=== PATIENT | male | born 1960 | race Two or more races ===

== ENCOUNTER 2016-12-22 05:00 | Inpatient (IN) | payer OTHER ==
[~2016-12-22] VITALS: Ht 162.6 cm; Wt 65.8 kg
[2016-12-22] VITALS (15 sets, daily range): BP systolic 95–175; BP diastolic 48–93
[2016-12-22] MEDS ORDERED: LISINOPRIL10 MG ORAL (06:02)
[2016-12-22] MEDS ORDERED: METFORMIN HCL1000 M1 ORAL (06:02)
[2016-12-22] MEDS ORDERED: GLIPIZIDE5 MG ORAL (06:02)
[2016-12-22] MEDS ORDERED: Thrombin 5000 units TOPIC ONE (06:25)
[2016-12-22] MEDS ORDERED: Vancomycin 1gm inj IVPB ONE (06:26)
[2016-12-22] MEDS ORDERED: Bupivacaine w/Epi 0.75% 30ml Vial INJ ONE (06:26)
[2016-12-22] MEDS ORDERED: Gelfoam Absorbable 1gm powder pkt TOPIC ONE (06:27)
[2016-12-22] MEDS ORDERED: Bacitracin 50000 Units Vial ONE (06:27)
[2016-12-22] MEDS ORDERED: Thrombin 5000 units spray kit TOPIC ONE (06:27)
[2016-12-22] MEDS ORDERED: LR 1000ml ONE (07:00)
[2016-12-22] MEDS ORDERED: Glycopyrrolate 0.2mg/ml 1ml Vial ONE (07:00)
[2016-12-22] MEDS ORDERED: Neostigmine 1mg/ml 10ml Inj ONE (07:00)
[2016-12-22] MEDS ORDERED: Zemuron 50mg/5ml Inj IV ONE (07:00)
[2016-12-22] MEDS ORDERED: NS Irrig 1000ml ONE (07:00)
[2016-12-22] MEDS ORDERED: Propofol 200mg/20ml IV ONE (07:00)
[2016-12-22] MEDS ORDERED: fentaNYL 100 mcg/2 mL IV ONE (07:00)
[2016-12-22] MEDS ORDERED: Midazolam 2mg/2ml Inj ONE (07:00)
[2016-12-22] MEDS ORDERED: Sodium Chloride 10ml vial INJ ONE (07:00)
[2016-12-22] MEDS ORDERED: Sterile Water Irrig 1000ml IRRIG ONE (07:00)
--- NOTE | 2016-12-22 07:11 | Pre-Procedure Note/Attestation ---
Pre-Procedure Note/Attestation Complete Prior to Procedure Planned Procedure: not applicable Procedure Narrative: For L5/S1 ALIF Indications for Procedure Pre-Operative Diagnosis: Instability, disc herniation L5/S1 for Anterior Decompression and instrumentation. Attestation I attest that I discussed the nature of the procedure; its benefits; risks and complications; and alternatives (and the risks and benefits of such alternatives ), prior to the procedure, with the patient (or the patient's legal authorization representative). I attest that, if there was a reasonable possibility of needing a blood transfusion, the patient (or the patient's legal authorization representative) was given the [place] [employer] [facility] standardized written summary, pursuant to the [place] Blood Safety Act ([place] Health and Safety Code # 1645, as amended). I attest that I re-evaluated the patient just prior to the surgery and that there has been no change in the patient's H&P, except as documented below: GABRIELLE ARTIS Dec 22, 2016 07:10
[2016-12-22] MEDS ORDERED: LR 1000ml 1,000 ML IVLG SCH (07:57)
[2016-12-22] MEDS ORDERED: LR 1000ml 1,000 ML IV SCH (08:00)
[2016-12-22] MEDS ORDERED: Meperidine 50mg/ml Inj(FOR RIGORS ONLY) IM PRN (08:00)
[2016-12-22] MEDS ORDERED: DiphenhydrAMINE 50mg/ml Inj IVP PRN ×2 (08:00→09:40)
[2016-12-22] MEDS ORDERED: Hydromorphone 0.5mg/0.5ml inj IVP PRN (08:00)
[2016-12-22] MEDS ORDERED: LORazepam Inj 2mg/ml 1ml IV PRN (08:00)
--- NOTE | 2016-12-22 08:04 | Anethesia Preoperative Eval ---
Anesthesia Pre-op PMH/ROS General Date of Evaluation: Dec 22, 2016 Time of Evaluation: 07:00 Anesthesiologist: Ashlyn ASA Score: ASA 3 Mallampati Score Class I : Soft palate, uvula, fauces, pillars visible Class II: Soft palate, uvula, fauces visible Class III: Soft palate, base of uvula visible Class IV: Only hard plate visible Mallampati Classification: Class II Surgeon: Shona Diagnosis: Disc bulges Surgical Procedure: ALIF L5-S1 Family History: no anesthesia problems Allergies: Coded Allergies: No Known Allergies (Unverified , 12/17/16) Medications: see eMAR Past Medical History Cardiovascular: Reports: HTN, Denies: CAD, LA, valve dz, arrhythmia, other Pulmonary: Denies: asthma, COPD, KYLE, other Gastrointestinal/Genitourinary: Denies: GERD, CRI, ESRD, other Neurologic/Psychiatric: Denies: dementia, CVA, depression/anxiety, TIA, other Endocrine: Reports: DM, Denies: hypothyroidism, steroids, other HEENT: Denies: cataract (L), cataract (R), glaucoma, [place] (L), [place] (R), other Hematology/Immune: Denies: anemia, DVT, bleeding disorder, other Musculoskeletal/Integumentary: Denies: OA, RA, DJD, DDD, edema, other PMH Narrative: HTN, DM PSxH Narrative: IH, eye surgery Anesthesia Pre-op Phys. Exam Physician Exam Last Vital Signs Date Time Temp Pulse Resp B/P (MAP) Pulse Ox O2 Delivery O2 Flow Rate FiO2 12/22/16 06:02 98.1 94 20 175/88 97 Room Air Constitutional: NAD Neurologic: CN 2-12 intact Cardiovascular: RRR, no M/R/G Respiratory: CTA Gastrointestinal: S/NT/ND Airway Exam Mallampati Score: Class II MO: full ROM: full Teeth: intact Anesthesia Pre-op A/P Labs WNL Accucheck 206 Studies Pre-op Studies: EKG - NSR, PFTS - WNL Risk Assessment & Plan Assessment: ASA class 3 patient for ALIF. Plan: GETA, SedLine Status Change Before Surgery: No Pre-Antibiotics Drug: Ancef Given Within 1 Hr of Incision: Yes Time Given: 07:20 CHERI GIL M.D. Dec 22, 2016 08:04
--- NOTE | 2016-12-22 08:05 | Immediate Post-Op Evaluation ---
Immediate Post-Op Evalulation Immediate Post-Op Evalulation Procedure: ALIF L5-S1 Date of Evaluation: Dec 22, 2016 Time of Evaluation: 08:55 IV Fluids: 1650 Estimated Blood Loss: 30 Blood Pressure Systolic: 82 Blood Pressure Diastolic: 57 Pulse Rate: 69 Respiratory Rate: 12 O2 Sat by Pulse Oximetry: 99 Temperature (Fahrenheit): 97.8 Pain Score (1-10): 0 Nausea: No Vomiting: No Complications No complication Patient Status: reacts, patent, extubated, none Hydration Status: adequate Drug: Ancef Given Within 1 Hr of Incision: Yes Time Given: 07:20 CHERI GIL M.D. Dec 22, 2016 08:05
[2016-12-22] MEDS ORDERED: Ropivacaine 5mg/ml Vial 30ml INJ ONE (08:22)
[2016-12-22] MEDS ORDERED: Acetaminophen 650 MG SUPP RECTAL PRN (09:30)
--- NOTE | 2016-12-22 09:30 | Operative Note - PDOC ---
Operative Note Operative Note Chief Complaint: Low Back and Right leg pain Pre-op Diagnosis: Instability, disc herniation L5/S1 for Anterior Decompression and instrumentation. Procedure: ALIF L5/S1 with InFix Fixation Post-op Diagnosis: same as pre-op Operative Findings: consistent w/pre-op dx studies Surgeon: Shona Director Of Vocational Guidance: CAMILA Syed Additional Surgeons: Holland - Vascular Access Anesthesiologist: Ashlyn Anesthesia: general Specimen: none Complications: none Condition: stable Estimated Blood Loss: minimal Drains: none Implant(s) used?: Yes - Po InFix device, PoGABRIELLE Canseco Dec 22, 2016 09:30
[2016-12-22] MEDS ORDERED: PCA HYDROmorphone 1mg/ml 30 ML IV ONE (09:39)
[2016-12-22] MEDS ORDERED: Rate Change PCA 1 Each MISC PRN (09:40)
[2016-12-22] MEDS ORDERED: LORazepam 1mg tab ORAL PRN (09:40)
[2016-12-22] MEDS ORDERED: Naloxone 0.4mg/ml Inj IVP PRN (09:40)
[2016-12-22] MEDS: PCA HYDROmorphone 1mg/ml 30 ML IV PRN (09:45)
--- NOTE | 2016-12-22 11:11 | Diagnostic Imaging Report ---
Indication: PAIN right lower extremity pain Technique: Intraoperative images Comparison: None Findings: Intraoperative imaging demonstrates a localizer tool projected at the L5-S1 level. The images demonstrate placement of a disc prosthesis at L5-S1. Impression: Intraoperative imaging, as described
[2016-12-22] MEDS ORDERED: PCA Education Pamphlet MISC ONE (12:00)
[2016-12-22] MEDS: NovoLOG Insulin Flexpen SUBQ SCH ×3 (12:01→21:17)
[2016-12-22] MEDS: ceFAZolin sod 1 GM in D5W 55 ML IV SCH (14:55)
--- NOTE | 2016-12-22 17:45 | Operative Note - Dictated ---
DATE OF OPERATION: 12/22/2016 FACILITY: [facility]. SURGEON: Glen Nagel M.D. CO-SURGEON FOR VASCULAR APPROACH: Kenney Holland M.D. CYBER INTELLIGENCE ANALYST: MELITA Moore. ANESTHESIA: General endotracheal with arterial blood pressure monitoring by Dr. Goldberg. PREOPERATIVE DIAGNOSIS: Discogenic disease at L5-S1 with significant radiculopathy and evidence of a 3 to 4 mm bulge with annular tear. Good relief with S1 selective nerve root block on the symptomatic side. POSTOPERATIVE DIAGNOSIS: Discogenic disease at L5-S1 with significant radiculopathy and evidence of a 3 to 4 mm bulge with annular tear. Good relief with S1 selective nerve root block on the symptomatic side. OPERATIVE PROCEDURE: Left pararectus anterior approach to the lumbar spine with vessel mobilization and retraction by Dr. Holland using a table fixed frame and reverse tip blades, anterior annulotomy, nuclear discectomy, partial vertebrectomy, bilateral micro foraminotomy and neurolysis, open-reduction and internal fixation at the lumbosacral level using a medium InFix cage 10 mm in height with 3+ 3 degrees of lordosis fusion with bone protein and autogenous bone, use of pulse oximetry to monitor lower extremity vasculature, use of image intensification for placement of the InFix cage. The patient was prepped and draped in supine position. Bolster was placed in the lumbar area to create normal lordosis. A left pararectus incision was made by Dr. Holland. The lumbosacral disc was identified. It was cleared. The iliac vessels were retracted from side to side. The middle sacral vein was occluded. The center of the disc was marked with AP and lateral fluoro. An anterior annulotomy was done with a 10 blade, and then the nuclear disc substance and cartilaginous endplate was slowly removed from front to back with the aid of lordotic distraction plugs beginning at 8 mm and progressing to 12 inserted side to side. The PLL and posterior disc anulus was removed, and a bilateral foraminotomy was accomplished. The space was templated at 10 mm with good lordosis and good alignment. A construct consisting of two 10 mm endplates medium was then tapped into place and checked on image. Side struts were then inserted and cold welded and the position was checked. The position was well centered between the pedicles on AP. On lateral, there was good reconstitution of disc height and overall lordosis. Space between the plates was filled with autogenous bone and bone protein. Vessels were checked. The wound was closed in layers including the anterior posterior rectus sheath, subcutaneous, and skin. Blood loss was less than 100 mL. The patient was placed in a bulky compression dressing, returned to recovery room in good condition. Glen Nagel M.D. DR: SEBASTIAN JOB#: [id number] CC:
--- NOTE | 2016-12-22 18:00 | Operative Note - Dictated ---
DATE OF OPERATION: 12/22/2016 VASCULAR SURGEON: Kenney Holland M.D. SPINE SURGEON: Glen Nagel M.D. PREOPERATIVE DIAGNOSIS: Degenerative disk disease. POSTOPERATIVE DIAGNOSIS: Degenerative disk disease. PROCEDURE PERFORMED: Anterior retroperitoneal exposure of L5-S1 vertebral interspace. INDICATIONS: The patient is a very pleasant gentleman who was seen in my office prior to surgery. He has had no prior anterior spine surgery. He has had a hernia repair in the past. He has no history of deep venous thrombosis or bleeding complications described. He has been made aware of the risks of surgery including vascular injury, possible need for blood transfusion, and deep venous thrombosis. DESCRIPTION OF FINDINGS: A low vertical midline incision was used. A left retroperitoneal approach was used. There was no peritoneal or ureteral violation. There was no vascular injury. Exposure of L5-S1 was obtained below the iliac bifurcation with retraction of left iliac vessels superiorly and laterally. Fluoroscopy used to confirm the appropriate level prior to instrumentation. On completion, the peritoneum and ureter were intact. Iliac vessels were intact. BLOOD LOSS: Was less than 50 mL. COMPLICATIONS: None. DESCRIPTION OF PROCEDURE: The patient was taken to the operating room, general anesthesia was used. Intravenous antibiotics were given. The patient's abdomen was prepped and draped. Appropriate time-out for procedure was taken. A low vertical midline incision was used. The anterior fascia was incised longitudinally in the midline. A plane was identified posterior to the left rectus abdominis, developed posterolaterally towards the patient's left. The retroperitoneal space entered below the arcuate line, and the peritoneum and ureter were mobilized towards the patient's right exposing the left common iliac artery and vein. Dissection was carried on the undersurface of left common iliac vein. The middle sacral artery and vein were ligated using bipolar electrocautery and divided, and this allowed us to retract the left iliac vessels superiorly and laterally exposing anterior surface of the L5-S1. The Omni retractor was set in place using a Judge blade for the lateral exposure and then fluoroscopy was used to confirm the appropriate level. Upon completion, the peritoneum and ureter were intact, iliac vessels were intact. Anterior fascia was closed using #1 PDS in a running fashion, and the skin and subcutaneous tissue were closed using 3-0 Vicryl and 4-0 Monocryl in a running subcuticular closure technique. ESTIMATED BLOOD LOSS: Less than 50 mL. COMPLICATIONS: None. Kenney Holland M.D. DR: ABHINAV JOB#: [id number] CC:
[2016-12-22] MEDS: PCA shift volume MISC SCH (19:26)
[2016-12-23] MEDS: ceFAZolin sod 1 GM in D5W 55 ML IV SCH ×2 (00:15→07:40)
[2016-12-23 04:00] VITALS: BP 116/72
[2016-12-23] MEDS: NovoLOG Insulin Flexpen SUBQ SCH ×4 (06:05→21:00)
[2016-12-23] MEDS: PCA shift volume MISC SCH ×2 (07:18→19:09)
[2016-12-23 08:00] VITALS: BP 133/108
[2016-12-23] MEDS: Lisinopril 10mg tab ORAL SCH (08:43)
--- NOTE | 2016-12-23 08:44 | 48 Hour Post Anesthesia Eval ---
Post Anesthesia Evaluation Procedure: ALIF L5-S1 Date of Evaluation: Dec 23, 2016 Time of Evaluation: 10:40 Blood Pressure Systolic: 133 0: 108 Pulse Rate: 93 Respiratory Rate: 18 Temperature (Fahrenheit): 97.8 O2 Sat by Pulse Oximetry: 96 Airway: patent Nausea: No Vomiting: No If pain is > 6 Comment: 4 Hydration Status: adequate Cardiopulmonary Status: Stable Mental Status/LOC: patient returned to baseline Follow-up Care/Observations: As per surgery Post-Anesthesia Complications: No anesthetic complication Follow-up care needed: N/A CHERI GIL M.D. Dec 23, 2016 08:44
[2016-12-23] MEDS: PCA HYDROmorphone 1mg/ml 30 ML IV PRN (10:06)
[2016-12-23 12:00] VITALS: BP 143/80
[2016-12-23 16:00] VITALS: BP 149/84
[2016-12-23 20:00] VITALS: BP 137/86
[2016-12-24] VITALS: BP 141/82
[2016-12-24 03:30] VITALS: BP 162/88
[2016-12-24 04:00] VITALS: BP 144/78
[2016-12-24] MEDS: NovoLOG Insulin Flexpen SUBQ SCH ×4 (06:13→20:45)
--- NOTE | 2016-12-24 07:11 | General Progress Note ---
Assessment/Plan Assessment/Plan Low Back and Right leg pain Instability, disc herniation L5/S1 for Anterior Decompression and instrumentation hypertension PLAN 1. incentive spirometry 2. SCD 3. PT evaluation and therapy 4. Hydration and advance diet 5. Pain management 6. discharge once stable with outpatient follow up Subjective Date patient seen: Dec 23, 2016 Time patient seen: 08:00 Allergies: Coded Allergies: No Known Allergies (Unverified , 12/17/16) Subjective care noted no distress Objective Last 24 Hour Vital Signs Date Time Temp Pulse Resp B/P (MAP) Pulse Ox O2 Delivery O2 Flow Rate FiO2 12/23/16 12:00 18 12/23/16 10:36 97.8 12/23/16 10:06 18 12/23/16 10:00 18 12/23/16 08:44 93 18 96 12/23/16 08:43 148/106 12/23/16 08:00 18 12/23/16 08:00 97.8 93 18 133/108 96 Room Air Height (Feet): 5 Height (Inches): 4.00 Weight (Pounds): 145 Objective WDWN NAD clear breath sounds bilaterally without rhonchi or wheeze [id number] without MRG reduced bowel sounds with mildly tender no CCE nonfocal GEORGIE MORENO Dec 24, 2016 07:11
--- NOTE | 2016-12-24 07:12 | General Progress Note ---
Assessment/Plan Assessment/Plan Low Back and Right leg pain Instability, disc herniation L5/S1 for Anterior Decompression and instrumentation hypertension PLAN 1. incentive spirometry 2. SCD 3. PT evaluation and therapy 4. Hydration and advance diet 5. Pain management 6. discharge once stable with outpatient follow up Subjective Allergies: Coded Allergies: No Known Allergies (Unverified , 12/17/16) Subjective care noted tolerating clears Objective Last 24 Hour Vital Signs Date Time Temp Pulse Resp B/P (MAP) Pulse Ox O2 Delivery O2 Flow Rate FiO2 12/24/16 04:00 18 12/24/16 04:00 98.2 81 18 144/78 99 Room Air 12/24/16 00:00 97.8 76 18 141/82 98 Room Air 12/24/16 00:00 18 12/23/16 20:00 98.1 82 18 137/86 97 Room Air 12/23/16 20:00 18 12/23/16 16:00 18 12/23/16 16:00 97.2 84 18 149/84 96 Room Air 12/23/16 12:00 98.4 83 18 143/80 96 Room Air 12/23/16 12:00 18 12/23/16 10:36 97.8 12/23/16 10:06 18 12/23/16 10:00 18 12/23/16 08:44 93 18 96 12/23/16 08:43 148/106 12/23/16 08:00 18 12/23/16 08:00 97.8 93 18 133/108 96 Room Air Height (Feet): 5 Height (Inches): 4.00 Weight (Pounds): 145 Objective WDWN NAD clear breath sounds bilaterally without rhonchi or wheeze [id number] without MRG noted bowel sounds with mild tenderness no CCE nonfocal GEORGIE MORENO Dec 24, 2016 07:12
[2016-12-24] MEDS: PCA shift volume MISC SCH ×2 (07:17→19:08)
[2016-12-24] MEDS ORDERED: Naloxone 0.4mg/ml Inj IVP PRN ×2 (08:05→09:40)
[2016-12-24] MEDS ORDERED: Rate Change PCA 1 Each MISC PRN (08:15)
[2016-12-24] MEDS: Lisinopril 10mg tab ORAL SCH (08:45)
[2016-12-24] MEDS ORDERED: Norco 7.5mg/325mg tab ORAL PRN ×2 (09:40)
[2016-12-24] MEDS ORDERED: DiphenhydrAMINE 50mg/ml Inj IVP PRN (09:40)
[2016-12-24] MEDS ORDERED: LORazepam 1mg tab ORAL PRN (09:40)
[2016-12-24] MEDS ORDERED: Norco 5mg/325mg tab ORAL PRN (09:40)
[2016-12-24] MEDS ORDERED: PCA HYDROmorphone 1mg/ml 30 ML IV PRN ×2 (09:40→11:30)
[2016-12-24] MEDS ORDERED: HYDROmorphone 1mg/ml Carpuject IVP PRN (09:40)
[2016-12-24] MEDS ORDERED: HYDROmorphone 1mg/ml Carpuject SUBQ PRN (09:40)
[2016-12-24 12:01] VITALS: BP 125/87
[2016-12-24 16:20] VITALS: BP 158/98
--- NOTE | 2016-12-24 17:15 | Progress Note ---
DATE: 12/22/2016 SUBJECTIVE: The patient is seen in postop. The patient overall stable. The patient underwent a lumbar interbody fusion. OBJECTIVE: VITAL SIGNS: Otherwise stable and reviewed. Temperature 98, pulse 84, respiratory rate 16, blood pressure 150/85, and sats 95%. HEENT: Negative. NECK: Supple. LUNGS: Clear. Symmetric. CARDIAC: Normal S1 and S2. Regular rate and rhythm. ABDOMEN: Somewhat tender. Normal bowel sounds. EXTREMITIES: No edema. IMPRESSION: 1. Lumbar disk disease. 2. Low back pain. 3. Right leg pain. 4. Status post anterior lumbar interbody fusion L5-S1 with internal fixation. RECOMMENDATION: Postoperative care, NPO, IV hydration, pain control, perioperative antibiotics, monitor bowel sounds, and advance diet as tolerated. Physical therapy evaluation. Bishop Bradford
[2016-12-24 20:00] VITALS: BP 156/93
[2016-12-24] MEDS: NS w/KCl 20mEq 1,000 ML IV SCH (22:00)
[2016-12-25] VITALS: BP 159/102
[2016-12-25 04:00] VITALS: BP 148/94
[2016-12-25] MEDS: NS w/KCl 20mEq 1,000 ML IV SCH (06:23)
[2016-12-25] MEDS: NovoLOG Insulin Flexpen SUBQ SCH ×2 (06:23→11:40)
[2016-12-25] MEDS: PCA shift volume MISC SCH (07:00)
[2016-12-25 08:00] VITALS: BP 134/89
[2016-12-25] MEDS: Lisinopril 10mg tab ORAL SCH (10:02)
[2016-12-25 12:30] VITALS: BP 158/95
[2016-12-25 13:11] VITALS: BP 158/95
[2016-12-25] MEDS ORDERED: Tubing IV Secondary IV ONE (13:59)
[2016-12-25] MEDS ORDERED: NS 500ML IV ONE (13:59)
--- NOTE | 2016-12-25 18:34 | General Progress Note ---
Assessment/Plan Assessment/Plan Low Back and Right leg pain Instability, disc herniation L5/S1 for Anterior Decompression and instrumentation hypertension PLAN stable dc home no acute issues followup with spine (seen earlier) Subjective Allergies: Coded Allergies: No Known Allergies (Unverified , 12/17/16) Subjective care noted tolerating full diet Objective Last 24 Hour Vital Signs Date Time Temp Pulse Resp B/P (MAP) Pulse Ox O2 Delivery O2 Flow Rate FiO2 12/25/16 12:30 98.9 82 20 158/95 95 Room Air 12/25/16 10:02 134/89 12/25/16 08:00 98.7 79 17 134/89 98 Room Air 12/25/16 08:00 17 12/25/16 04:00 97.7 73 18 148/94 98 Room Air 12/25/16 04:00 18 12/25/16 00:00 18 12/25/16 00:00 99.0 83 18 159/102 96 Room Air 12/24/16 23:54 159/102 12/24/16 20:00 18 12/24/16 20:00 98.7 98 18 156/93 94 Room Air Intake and Output 12/25/16 12/26/16 19:00 07:00 Intake Total 400 ml Balance 400 ml IV Total 400 ml Height (Feet): 5 Height (Inches): 4.00 Weight (Pounds): 145 Objective WDWN NAD clear breath sounds bilaterally without rhonchi or wheeze [id number] without MRG noted bowel sounds with mild tenderness no CCE nonfocal GEORGIE MORENO Dec 25, 2016 18:34
--- NOTE | 2016-12-26 09:01 | Discharge Summary ---
Discharge Summary Hospital Course Date of Admission Dec 22, 2016 at 05:00 Date of Discharge Dec 25, 2016 at 14:00 Admitting Diagnosis HPI Galen Cook is a 56 year old male who was admitted on Dec 22, 2016 at 05:00 for Disc Bulges Hospital Course [id number] Discharge Discharge Disposition Patient was discharged to Home (01) Discharge Diagnoses: Miranda Rhodes NP Dec 26, 2016 09:01
--- NOTE | 2016-12-26 16:00 | Discharge Summary 2 SIG ---
DATE OF ADMISSION: 12/22/2016 DATE OF DISCHARGE: 12/25/2016 SURGEON: 1. Glen Nagel M.D. 2. Kenney Holland M.D. BRIEF HOSPITAL COURSE: The patient is a 56-year-old male, who was diagnosed with discogenic disc disease at L5-S1 with significant radiculopathy and evidence of a 3 to 4 mm bulge with annual tear, was admitted on 12/22/2016 and underwent ALIF on L5-S1 with InFix fixation, assisted by Dr. Holland, who performed anterior retroperitoneal exposure of L5-S1 vertebral interspace. Postoperatively, he was given SCDs for DVT prophylaxis and was encouraged use of incentive spirometry. He was given pain management and IV hydration. Diet was eventually advanced. He was passing gas. Abdominal incision was clean, dry and intact. He was eventually discharged home and was provided a 4-point quad cane. Advised to follow up with spine surgery in a week. FINAL DIAGNOSES: 1. Discogenic disc disease at L5-S1 with significant radiculopathy, status post anterior lumbar interbody fusion on L5-S1 with InFix fixation. 2. Hypertension. DISPOSITION: The patient was discharged home. DISCHARGE MEDICATIONS: Refer to medication list. FOLLOWUP: Follow up with surgery in a week. Ezekiel Merrill M.D. I have been assigned to dictate discharge summary on this account and I was not involved in the patient's management. Miranda Rhodes N.P. DR: JOSH JOB#: [id number] CC:
== END 2016-12-25 14:00 | disposition home or self-care (01) | DRG 460 ==
LOC: SDSOVERFLO 05:00 → 3E 10:17
PROC: 0SB40ZZ Excision of Lumbosacral Disc, Open Approach (ICD-10-PCS; principal; 2016-12-22 07:00)
PROC: 0SG30A0 Fusion of Lumbosacral Joint with Interbody Fusion Device, Anterior Approach, Anterior Column, Open Approach (ICD-10-PCS; principal; 2016-12-22 07:00)
DX: M51.17 Intervertebral disc disorders with radiculopathy, lumbosacral region (principal); I10 Essential (primary) hypertension; E11.9 Type 2 diabetes mellitus without complications; E78.00 Pure hypercholesterolemia, unspecified; Z87.891 Personal history of nicotine dependence
CPT/HCPCS: 36415; 72020; 76001; 82962; 86850; 86900; 86901; 87081; 94003; 94150; J1815; J2250; J2405; J2710